=== PATIENT | female | born 1955 | race Hispanic/Latino ===

== ENCOUNTER → 2018-06-10 | Outpatient (RCR) | payer MEDICARE, OTHER ==
[~2018-06-10] MED LIST: CYMBALTA60 MG PO; HYDROCODON-ACE1 EACH PO; MOTRIN800 MG PO
== END ==
LOC: PT 06-03 13:33
PROVIDERS: ATTEND Specialist
DX: M17.0 Bilateral primary osteoarthritis of knee (principal); M25.562 Pain in left knee; M25.561 Pain in right knee; M25.661 Stiffness of right knee, not elsewhere classified; M62.81 Muscle weakness (generalized)

== ENCOUNTER 2018-06-17 09:00 | Outpatient (RCR) | payer MEDICARE, OTHER | END 2018-07-10 | LOC: PT 09:00 | PROVIDERS: ATTEND Specialist | DX: M17.0 Bilateral primary osteoarthritis of knee (principal); M62.81 Muscle weakness (generalized); M25.562 Pain in left knee; M25.561 Pain in right knee; M25.662 Stiffness of left knee, not elsewhere classified; M25.661 Stiffness of right knee, not elsewhere classified ==

== ENCOUNTER → 2020-06-14 | Outpatient (CLI) | payer MEDICARE, OTHER ==
--- NOTE | 2020-06-14 11:11 | Diagnostic Imaging Report ---
EXAMINATION: CERVICAL SPINE 4 OR 5 VIEWS INDICATION: Cervical spondylosis COMPARISON: None FINDINGS: AP, lateral, oblique and odontoid images of the cervical spine demonstrate no acute fracture. Vertebral body heights are maintained. Alignment is anatomic. Mild multilevel degenerative changes with disc space narrowing and osteophyte formation most notably at C5-6. Prevertebral soft tissues are normal in thickness. IMPRESSION: No acute cervical spine osseous injury. Mild multilevel degenerative changes most notably at C5-6. Signed by: Ambreen Sears MD on 06/14/2020 11:07 AM
== END ==
LOC: RAD 10:24
PROVIDERS: ATTEND Internal Medicine
DX: M47.812 Spondylosis without myelopathy or radiculopathy, cervical region (principal)
CPT/HCPCS: 72050

== ENCOUNTER 2022-01-21 10:35 | Emergency (ER) | payer MEDICARE, OTHER ==
[~2022-01-21] VITALS: Ht 157.5 cm; Wt 102.1 kg
[~2022-01-21 10:35] MED LIST changes: +SODIUM CHLORIDE 0.9% 1000ML 1,000 ML IV SCH; +SODIUM CHLORIDE FLUSH 10 ML SYR IV PRN
[2022-01-21 12:48] LABS: CLARITY,URINE CLEAR (CLEAR); COLOR,URINE YELLOW (YELLOW); LEUKOCYTE ESTERASE ,URINE NEGATIVE (NEGATIVE); NITRITE,URINE NEGATIVE (NEGATIVE); PROTEIN,URINE DIPSTICK NEGATIVE (NEGATIVE)
[2022-01-21 12:49] LABS: KETONES,URINE 1+ (NEGATIVE); URINE UROBILINOGEN 0.2 mg/dL (0.2 - 1)
[2022-01-21 13:04] LABS: BACTERIA,URINE FEW /HPF; EPITHELIAL CELLS,URINE FEW /LPF; WBC,URINE (MAN) 0-5 /HPF (0-5)
[2022-01-21 14:17] LABS: BASOPHILS % 0.6 % (0.0-1.0); EOSINOPHILS % 0.5 % (0.0-6.0); HEMOGLOBIN 14.3 g/dL (12.0-16.0); LYMPHOCYTES # (AUTO) 2.2 (1.0-3.2); LYMPHOCYTES % 32.8 % (18.0-39.1); MEAN CORPUSCULAR HGB CONC 32.5 g/dL (31-35); MEAN CORPUSCULAR VOLUME 98.4 fL (81-99); MONOCYTES # (AUTO) 0.4 (0.2-0.8); MONOCYTES % 6.6 % (4.4-11.3); NEUTROPHILS # (AUTO) 3.9 (2.1-6.9); NEUTROPHILS % 59.3 % (38.7-80.0); PLATELET COUNT 153 x10e3/uL (140-360); RED BLOOD COUNT 4.47 x10e6/uL (3.6-5.1); RED CELL DISTRIBUTION WIDTH 13.8 % (11.7-14.4)
[2022-01-21 14:23] LABS: INR 0.87; PROTHROMBIN TIME 12.7 seconds (11.9-14.5)
[2022-01-21 14:24] LABS: PARTIAL THROMBOPLASTIN TIME 23.6 seconds (23.8-35.5)
[2022-01-21 14:31] LABS: ALBUMIN 3.8 g/dL (3.5-5.0); ANION GAP 16.9 mmol/L (8-16); CALCIUM 9.7 mg/dL (8.4-10.2); CREATININE, SERUM 0.8 mg/dL (0.57-1.11); POTASSIUM 3.9 mmol/L (3.5-5.1)
[2022-01-21] MEDS ORDERED: CEFDINIR300 MG PO (15:41)
[2022-01-21] MEDS ORDERED: VISTARIL25 MG PO (15:41)
[2022-01-21] MEDS ORDERED: NYSTATIN15 GM TOP (15:41)
== END 2022-01-21 16:51 | disposition home or self-care (01) ==
LOC: ER 11:07
DX: L29.2 Pruritus vulvae (principal); U07.1 COVID-19; S30.811A Abrasion of abdominal wall, initial encounter; S30.810A Abrasion of lower back and pelvis, initial encounter; I10 Essential (primary) hypertension; E11.9 Type 2 diabetes mellitus without complications; R07.9 Chest pain, unspecified; X58.XXXA Exposure to other specified factors, initial encounter; Z85.72 Personal history of non-Hodgkin lymphomas; Z87.442 Personal history of urinary calculi; Z87.891 Personal history of nicotine dependence
CPT/HCPCS: 36415; 71045; 74176; 80053; 81001; 83690; 85025; 85610; 85730; 86850; 86900; 99284; J7030; U0002

== ENCOUNTER → 2022-02-08 | Outpatient (CLI) | payer MEDICARE, OTHER ==
[~2022-02-08] MED LIST changes: +CEFDINIR300 MG PO; +NYSTATIN15 GM TOP; -SODIUM CHLORIDE 0.9% 1000ML 1,000 ML IV SCH; -SODIUM CHLORIDE FLUSH 10 ML SYR IV PRN; +VISTARIL25 MG PO
== END ==
LOC: US 12:32
PROVIDERS: ATTEND Internal Medicine
DX: N95.0 Postmenopausal bleeding (principal)
CPT/HCPCS: 76830; 76856

== ENCOUNTER → 2022-09-06 | Outpatient (CLI) | payer MEDICARE, OTHER ==
[~2022-09-06] MED LIST changes: +GADOBENATE DIMEGLUMINE 1 ML IV ONE
[2022-09-06 10:17] LABS: CREATININE, SERUM 0.71 mg/dL (0.57-1.11)
== END ==
LOC: MRI 09:34
PROVIDERS: ATTEND Internal Medicine Endocrinology, Diabetes & Metabolism
DX: D35.02 Benign neoplasm of left adrenal gland (principal)
CPT/HCPCS: 36415; 74183; 82565; 84520; A9577

== ENCOUNTER 2022-11-21 04:07 | Emergency (ER) | payer MEDICARE, OTHER ==
[~2022-11-21] VITALS: Ht 157.5 cm; Wt 102.1 kg
[~2022-11-21 04:07] MED LIST changes: -GADOBENATE DIMEGLUMINE 1 ML IV ONE
[2022-11-21] MEDS ORDERED: ONDANSETRON HCL INJ 2MG/ML 2ML 2 MG/ML VIAL IV STA (04:11)
[2022-11-21 04:27] LABS: BASOPHILS # (AUTO) 0.1 (0.0-0.1); BASOPHILS % 0.8 % (0.0-1.0); EOSINOPHILS # (AUTO) 0.1 (0.0-0.4); EOSINOPHILS % 0.9 % (0.0-6.0); HEMATOCRIT 42.8 % (34.2-44.1); HEMOGLOBIN 14.3 g/dL (12.0-16.0); LYMPHOCYTES # (AUTO) 1.9 (1.0-3.2); MEAN CORPUSCULAR HEMOGLOBIN 31.8 pg (28-32); MEAN CORPUSCULAR HGB CONC 33.4 g/dL (31-35); MEAN CORPUSCULAR VOLUME 95.3 fL (81-99); MONOCYTES # (AUTO) 0.5 (0.2-0.8); MONOCYTES % 6.7 % (4.4-11.3); NEUTROPHILS # (AUTO) 4.9 (2.1-6.9); NEUTROPHILS % 66.2 % (38.7-80.0); PLATELET COUNT 127 x10e3/uL (140-360); RED BLOOD COUNT 4.49 x10e6/uL (3.6-5.1); RED CELL DISTRIBUTION WIDTH 13.4 % (11.7-14.4)
[2022-11-21 04:48] LABS: ALANINE AMINOTRANSFERASE 29 IU/L (0-55); ALBUMIN 3.6 g/dL (3.5-5.0); ALBUMIN/GLOBULIN RATIO 0.8 (0.8-2.0); ALKALINE PHOSPHATASE 119 IU/L (40-150); ANION GAP 19.6 mmol/L (8-16); BLOOD UREA NITROGEN 9 mg/dL (7-26); BUN/CREATININE RATIO 11 (6-25); CALCIUM 9.2 mg/dL (8.4-10.2); CARBON DIOXIDE 22 mmol/L (22-29); CHLORIDE 100 mmol/L (98-107); CREATINE KINASE 55 IU/L (29-168); CREATININE, SERUM 0.82 mg/dL (0.57-1.11); GLUCOSE 204 mg/dL (74-118); POTASSIUM 3.6 mmol/L (3.5-5.1); SODIUM 138 mmol/L (136-145)
[2022-11-21] MEDS ORDERED: ONDANSETRON ODT4 MG PO (05:12)
[2022-11-21 05:26] VITALS: BP 129/72
== END 2022-11-21 05:27 | disposition home or self-care (01) ==
LOC: ER 04:15
DX: R11.2 Nausea with vomiting, unspecified (principal); T39.1X5A Adverse effect of 4-Aminophenol derivatives, initial encounter; E11.65 Type 2 diabetes mellitus with hyperglycemia; I10 Essential (primary) hypertension; Z85.72 Personal history of non-Hodgkin lymphomas
CPT/HCPCS: 36415; 80053; 82550; 82553; 83690; 84484; 85025; 93005; 99284; C9113; J2405

== ENCOUNTER 2023-07-08 11:30 | Emergency (ER) | payer MEDICARE, OTHER ==
[~2023-07-08] VITALS: Ht 157.5 cm; Wt 102.1 kg
[~2023-07-08 11:30] MED LIST changes: +ONDANSETRON ODT4 MG PO
[2023-07-08 11:55] VITALS: O2SAT 100
[2023-07-08] MEDS ORDERED: KETOROLAC TROMETHAMINE 30 MG/ML VIAL IV STA (12:03)
[2023-07-08] MEDS ORDERED: KETOROLAC TROME10 MG PO (12:12)
[2023-07-08] MEDS ORDERED: KETOROLAC TROMETHAMINE 60 MG/2 ML VIAL IM ONE (12:15)
[2023-07-08] MEDS ORDERED: DEXAMETHASONE SOD PHOS 10 MG/1 ML VIAL IM ONE ×2 (12:15)
== END 2023-07-08 12:54 | disposition home or self-care (01) ==
LOC: ER 11:35
DX: M54.2 Cervicalgia (principal); M54.50 Low back pain, unspecified; X50.0XXA Overexertion from strenuous movement or load, initial encounter; Y92.89 Other specified places as the place of occurrence of the external cause
CPT/HCPCS: 99283; J1100; J1885

== ENCOUNTER → 2023-07-09 | Outpatient (REF) | payer MEDICARE, OTHER ==
[~2023-07-09] MED LIST changes: +KETOROLAC TROME10 MG PO
== END ==
LOC: RAD 13:20
PROVIDERS: ATTEND Internal Medicine
DX: M54.50 Low back pain, unspecified (principal)
CPT/HCPCS: 72110